=== PATIENT | male | born 1930 | race Caucasian/White ===

== ENCOUNTER 2018-09-06 09:09 | Day surgery (SDC) | payer MEDICARE, OTHER ==
[~2018-09-06] VITALS: Ht 182.9 cm; Wt 85.7 kg
[2018-09-06] MEDS ORDERED: LACTATED RINGERS 1,000 ML IV SCH (09:49)
[2018-09-06] MEDS ORDERED: TRAM50TA2 PO (09:51)
[2018-09-06] MEDS ORDERED: ASPI81TA45 PO (09:51)
[2018-09-06] MEDS ORDERED: MULT-6 PO (09:51)
[2018-09-06] MEDS ORDERED: FURO-92 PO (09:51)
[2018-09-06 10:20] VITALS: BP 137/74
[2018-09-06] MEDS ORDERED: FENTANYL PF 100 MCG/2ML ONE (10:24)
[2018-09-06] MEDS ORDERED: ACETAMINOPHEN 500 MG TABLET PO ONE (10:30)
[2018-09-06] MEDS ORDERED: ONDANSETRON ODT 8 MG PO ONE (10:30)
[2018-09-06] MEDS ORDERED: BUPIVACAINE 0.25% ONE (10:48)
[2018-09-06] MEDS ORDERED: BUPIVACAINE/PF 0.5% ONE ×2 (10:49→11:49)
[2018-09-06] MEDS ORDERED: DEXAMETHASONE 4 MG/ML, 1ML ONE (11:21)
[2018-09-06] MEDS ORDERED: CEFAZOLIN 1,000 MG ONE (11:21)
[2018-09-06] MEDS ORDERED: PROPOFOL 10 MG/ML, 50ML ONE (11:21)
[2018-09-06] MEDS ORDERED: LIDOCAINE-MPF 2% ,5ML ONE (11:50)
[2018-09-06] MEDS ORDERED: FENTANYL PF 100 MCG/2ML IV PRN (12:00)
[2018-09-06] MEDS ORDERED: hydrALAzine 20 MG/ML, 1ML IV PRN (12:00)
[2018-09-06] MEDS ORDERED: OXYcodone 5 MG/5 ML ORAL.SOL UDC PO PRN (12:00)
[2018-09-06] MEDS ORDERED: LABETALOL 5MG/ML, 20ML IV PRN (12:00)
[2018-09-06] MEDS ORDERED: ONDANSETRON 2MG/ML, 2ML IV PRN (12:00)
[2018-09-06] MEDS ORDERED: KETOROLAC 30 MG/1 ML ONE (12:02)
[2018-09-06] MEDS ORDERED: KETOROLAC 30 MG/1 ML IVPush ONE (12:30)
[2018-09-06] MEDS ORDERED: KETOROLAC 30 MG/1 ML IVPush SCH (12:30)
== END 2018-09-06 14:00 | disposition home or self-care (01) ==
LOC: OUT 09:09
PROVIDERS: ATTEND Orthopaedic Surgery
DX: S50.11XA Contusion of right forearm, initial encounter (principal); X58.XXXA Exposure to other specified factors, initial encounter; Y93.89 Activity, other specified; Y92.89 Other specified places as the place of occurrence of the external cause; Y99.8 Other external cause status
CPT/HCPCS: 11043; 15273; 64415; 93005; J0690; J1100; J1885; J2704; J3010; J3490; J7120; Q0162

== ENCOUNTER → 2020-11-19 | Outpatient (CLI) | payer OTHER ==
[~2020-11-19] MED LIST: ASPI81TA45 PO; FURO-92 PO; MULT-6 PO; TRAM50TA2 PO
== END | disposition home or self-care (01) ==
LOC: CVU 14:19
PROVIDERS: ATTEND Orthopaedic Surgery
DX: I08.1 Rheumatic disorders of both mitral and tricuspid valves (principal); I25.10 Atherosclerotic heart disease of native coronary artery without angina pectoris
CPT/HCPCS: 93306